=== PATIENT | male | born 1965 | race Hispanic/Latino ===

== ENCOUNTER 2017-03-31 08:04 | Day surgery (SDC) | payer MEDICARE, MEDICAID ==
[2017-03-30 14:29] VITALS: BMI 24.8
[2017-03-31] MEDS ORDERED: Midazolam HCl 2 mg/2 ml Vial ONE (08:52)
[2017-03-31] MEDS ORDERED: Ketamine 50 MG/ML VIAL ONE (08:52)
--- NOTE | 2017-03-31 11:41 | OP ---
DATE OF PROCEDURE: 03/31/2017 PROCEDURE PERFORMED: Esophagogastroduodenoscopy with biopsy and colonoscopy with snare polypectomy. PREOPERATIVE DIAGNOSES: History of gastric adenoma, adenomatous polyp and colon cancer screening. PROCEDURE IN DETAIL: Informed consent was obtained from the patient. He was sedated with total intr avenous anesthesia. The bite block was placed and the endoscope was advanced easily to the second po rtion of the duodenum and retroflexion was performed in the stomach. The esophagus was normal. The GE junction was normal. The stomach had diffuse nonerosive erythematous gastritis. There was somewh at of a snakeskin appearance to the body of the stomach. The stomach was J-shaped and the antrum was not distensible well due to a slight twist of the stomach in this area. The endoscope could be adva nced to the second portion of the duodenum. The mucosa of the duodenum was normal. The second porti on of the duodenum was normal. The first portion of the duodenum had nonerosive duodenitis. The ant rum of the stomach when the tip of the scope was advanced into the antrum could be distended with air and mucosa appeared unremarkable. The patient was turned around. Rectal exam was performed and was normal. The preparation quality was adequate. The colonoscope was advanced to the cecum where the ileocecal valve and appendiceal orifice were clearly identified. A 5 mm polyp was removed by cold sn are polypectomy from the transverse colon. The remainder of the colonic mucosa was normal. Retrofle xed views in the rectum were normal. IMPRESSION: 1. Diffuse nonerosive gastritis, biopsied to rule out Helicobacter pylori. 2. Erosive duodenitis. 3. Otherwise normal esophagogastroduodenoscopy with slight J-shaped stomach and mild twisted antrum. 4. 5 mm transverse colon polyp removed. 5. Otherwise, normal colonoscopy. 6. Please note that the gastrostomy tube was in the appropriate position in the body of the stomach. RECOMMENDATIONS: 1. Await histopathology. 2. Repeat colonoscopy in five years if the polyp is an adenoma. 3. Follow up in [facility] Clinic as needed.
[2017-03-31] MEDS ORDERED: Lidocaine 1% PF 5 ML VIAL ONE (13:05)
[2017-03-31] MEDS ORDERED: PHENYLEPHRINE-NS 100 MCG/ML 10 ML SYRINGE ONE (13:05)
[2017-03-31] MEDS ORDERED: Glycopyrrolate 0.2 MG/ML 5 ML SYRINGE ONE (13:05)
== END 2017-03-31 11:55 | disposition home or self-care (01) ==
LOC: SDC 08:04
PROVIDERS: ATTEND Internal Medicine Gastroenterology
PROC: 0DB68ZX Excision of Stomach, Via Natural or Artificial Opening Endoscopic, Diagnostic (ICD-10-PCS; principal; 2017-03-31)
PROC: 0DBL8ZX Excision of Transverse Colon, Via Natural or Artificial Opening Endoscopic, Diagnostic (ICD-10-PCS; 2017-03-31)
DX: Z12.11 Encounter for screening for malignant neoplasm of colon (principal); D12.3 Benign neoplasm of transverse colon; K29.50 Unspecified chronic gastritis without bleeding; B96.81 Helicobacter pylori [H. pylori] as the cause of diseases classified elsewhere; K29.70 Gastritis, unspecified, without bleeding; K29.80 Duodenitis without bleeding; F73 Profound intellectual disabilities; Z79.51 Long term (current) use of inhaled steroids; Z79.899 Other long term (current) drug therapy; Z85.028 Personal history of other malignant neoplasm of stomach; Z86.010 Personal history of colon polyps; Z88.8 Allergy status to other drugs, medicaments and biological substances; Z93.1 Gastrostomy status; Z98.890 Other specified postprocedural states
CPT/HCPCS: 88305; 88312; J2001; J2250

== ENCOUNTER 2024-02-17 06:28 | Day surgery (SDC) | payer MEDICARE, MEDICAID ==
[2024-02-16 11:52] VITALS: BMI 24.3
[2024-02-17] MEDS ORDERED: Fleet Saline Enema 133 ML BOT PR SCH (07:30)
[2024-02-17] MEDS ORDERED: PROPOFOL 60 ML ONE (08:21)
[2024-02-17] MEDS ORDERED: Lidocaine 2% PF 5 ML VIAL ONE (08:55)
[2024-02-17] MEDS ORDERED: ePHEDrine Sulfate 50 MG/10 ML VIAL ONE (08:55)
[2024-02-17] MEDS ORDERED: PHENYLEPHRINE-NS 100 MCG/ML 10 ML SYRINGE ONE (09:08)
== END 2024-02-17 11:02 | disposition home or self-care (01) ==
LOC: SDC 06:28
PROVIDERS: ATTEND Internal Medicine Gastroenterology
PROC: 0DBK8ZZ Excision of Ascending Colon, Via Natural or Artificial Opening Endoscopic (ICD-10-PCS; principal; 2024-02-17)
PROC: 0DBL8ZZ Excision of Transverse Colon, Via Natural or Artificial Opening Endoscopic (ICD-10-PCS; 2024-02-17)
PROC: 0DBN8ZZ Excision of Sigmoid Colon, Via Natural or Artificial Opening Endoscopic (ICD-10-PCS; 2024-02-17)
PROC: 0DBH8ZZ Excision of Cecum, Via Natural or Artificial Opening Endoscopic (ICD-10-PCS; 2024-02-17)
DX: Z12.11 Encounter for screening for malignant neoplasm of colon (principal); D12.0 Benign neoplasm of cecum; D12.5 Benign neoplasm of sigmoid colon; D12.3 Benign neoplasm of transverse colon; D64.9 Anemia, unspecified; K63.89 Other specified diseases of intestine; K21.9 Gastro-esophageal reflux disease without esophagitis; E78.5 Hyperlipidemia, unspecified; E22.2 Syndrome of inappropriate secretion of antidiuretic hormone; H40.9 Unspecified glaucoma; G80.9 Cerebral palsy, unspecified; G40.909 Epilepsy, unspecified, not intractable, without status epilepticus; M81.0 Age-related osteoporosis without current pathological fracture; M40.209 Unspecified kyphosis, site unspecified; Z86.0100 Personal history of colon polyps, unspecified; Z88.8 Allergy status to other drugs, medicaments and biological substances; Z79.51 Long term (current) use of inhaled steroids; Z79.899 Other long term (current) drug therapy
CPT/HCPCS: 45385; J2704; 88305